=== PATIENT | female | born 1990 | race Caucasian/White ===

== ENCOUNTER 2020-01-13 08:19 | Day surgery (SDC) | payer OTHER ==
[~2020-01-13 08:19] MED LIST: CEFAZOLIN 2 GM/D5W RTU 2 GM/50 ML RTUPB IV PRN; LACTATED RINGERS 1000 ML IV PRN; LIDOCAINE 0.5% INJ-PF (5 MG/ML) 50 ML SDV SUBCUT PRN
[2020-01-13] MEDS ORDERED: CEFAZOLIN 2 GM/D5W RTU 2 GM/50 ML RTUPB IV ONE (08:57)
[2020-01-13] MEDS ORDERED: FENTANYL CITRATE INJ/PF 100 MCG/2 ML AMPUL ONE (09:34)
[2020-01-13] MEDS ORDERED: PROPOFOL INJ 200 MG/20 ML VIAL IV ONE (09:35)
[2020-01-13] MEDS ORDERED: ONDANSETRON HCL INJ/PF 4 MG/2 ML SDV ONE (09:35)
[2020-01-13] MEDS ORDERED: DEXAMETHASONE SOD PHOSPHATE INJ 4 MG/1 ML VIAL ONE (09:35)
[2020-01-13] MEDS ORDERED: MIDAZOLAM 2 MG/2 ML INJ ONE (09:35)
[2020-01-13] MEDS ORDERED: COCAINE HCL 4% TOPICAL SOLN 4 ML ONE (09:57)
[2020-01-13] MEDS ORDERED: OXYMETAZOLINE HCL 0.05% NASAL SPRAY 15 ML BOTTLE ONE (09:57)
[2020-01-13] MEDS ORDERED: FENTANYL CITRATE INJ/PF 100 MCG/2 ML AMPUL IV PRN ×3 (10:46)
[2020-01-13] MEDS ORDERED: MEPERIDINE HCL/PF INJ 25 MG/1 ML DISP.SYRIN IV PRN (10:46)
[2020-01-13] MEDS ORDERED: MORPHINE SULFATE 10 MG/ML INJ IV PRN (10:46)
[2020-01-13] MEDS ORDERED: PROMETHAZINE HCL INJ 25 MG/1 ML VIAL IV PRN (10:46)
[2020-01-13] MEDS ORDERED: ONDANSETRON HCL INJ/PF 4 MG/2 ML SDV IV PRN ×2 (10:46→11:48)
[2020-01-13] MEDS ORDERED: OXYCODONE-ACETAMINOPHEN 5-325 MG TABLET PO PRN ×2 (10:46)
[2020-01-13] MEDS ORDERED: DIPHENHYDRAMINE HCL 50 MG/ML VIAL IV PRN (10:46)
[2020-01-13] MEDS ORDERED: DEXAMETHASONE SOD PHOS INJ 10 MG/1 ML VIAL ONE (11:21)
[2020-01-13] MEDS ORDERED: SUCCINYLCHOLINE CHLORIDE INJ 200 MG/10 ML VIAL ONE (11:25)
[2020-01-13] MEDS ORDERED: ROCURONIUM BROMIDE INJ 50 MG/5 ML VIAL IV ONE (11:25)
[2020-01-13] MEDS: FENTANYL CITRATE INJ/PF 100 MCG/2 ML AMPUL ONE ×3 (11:34→11:46)
--- NOTE | 2020-01-13 11:43 | Operative Report ---
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 The patient's voice is dysphonic soft. Presents today for a MicroDirect laryngoscopy with injection medialization laryngoplasty of the left true vocal cord. Preoperative Diagnosis: Left true vocal cord paralysis Postoperative Diagnosis: Same as above Procedure: 1. Micro Direct Laryngoscopy 2. Injection medialization laryngoplasty, left true vocal cord Surgeon: Conner Parekh MD, FACS, [facility] Anesethia: ZELDA Description of the procedure: After receiving informed consent, the patient was brought to the operating room and placed supine on the operating room table. After successful induction and intubation by anesthesia, the operating room table was turned 90. A head drape was placed. The patient was placed in a sniffing position. A mouthguard was placed to protect the dentition. An operating laryngoscope was placed atraumatically into the laryngeal inlet. The laryngoscope was then placed into suspension. The microscope was brought into the field and the larynx was visualized. The left true vocal cord was atrophied compared to the right. Cottonoids soaked in 4% cocaine were placed into the laryngeal inlet to cover the vocal cords, prior to initiation of the procedure. The cottonoids were removed. The injection material which was Ofelia gel, a temporary bulking agent, was injected at the junction of the ventricle and true vocal cord just anterior to the tip of the vocal cord process. Approximately 1.2 mL of the bulking agent was injected. An infraglottic bulge was noted at the onset of injection. The depth of injection was around 5 mm. A cottonoid soaked in 4% cocaine was placed over the injection site. Hemostasis was obtained. The patient was taken out of suspension and the laryngoscope removed. The patient was then given back to anesthesia who successfully extubated the patient without any complications. Estimated blood loss: Minimal Fluids: 700 mL The patient tolerated the procedure well without any complications. The patient was then transported to the post anesthesia care unit in stable condition with spontaneous respirations.
[2020-01-13] MEDS ORDERED: HYDROCODONE/ACETAMINOPHEN 5-325 MG TABLET PO PRN (11:46)
[2020-01-13 13:37] VITALS: BP 107/73
== END 2020-01-13 13:35 | disposition home or self-care (01) ==
LOC: OROUT 08:19
PROVIDERS: ATTEND Otolaryngology
DX: J38.01 Paralysis of vocal cords and larynx, unilateral (principal); R13.12 Dysphagia, oropharyngeal phase; E89.0 Postprocedural hypothyroidism; Z79.899 Other long term (current) drug therapy
CPT/HCPCS: 87635; 31570; J2250; J3490 ×2; J1100 ×2; J3010; J2405; J2704; J0690; C9803; 320; J0330; L8607

== ENCOUNTER 2020-05-20 10:23 | Day surgery (SDC) | payer OTHER ==
[~2020-05-20 10:23] MED LIST changes: +LIDOCAINE 4% INJ/PF (40 MG/ML) 5 ML AMPUL NEB PRN; +NORMAL SALINE INJ/PF 0.9% 10 ML SDV MC PRN
[2020-05-20] MEDS ORDERED: CEFAZOLIN 2 GM/D5W RTU 2 GM/50 ML RTUPB IV ONE (10:58)
[2020-05-20] MEDS ORDERED: LIDOCAINE 4% INJ/PF (40 MG/ML) 5 ML AMPUL ONE (12:14)
[2020-05-20] MEDS ORDERED: LIDOCAINE 2%/EPINEPHRINE INJ 1.7 ML CARTRIDGE ONE (12:40)
[2020-05-20] MEDS ORDERED: LIDOCAINE 1%/EPINEPHRINE INJ 20 ML VIAL ONE (12:40)
[2020-05-20] MEDS ORDERED: OXYMETAZOLINE HCL 0.05% NASAL SPRAY 15 ML BOTTLE ONE (12:40)
[2020-05-20] MEDS ORDERED: COCAINE HCL 4% TOPICAL SOLN 4 ML ONE (12:40)
[2020-05-20] MEDS ORDERED: MIDAZOLAM 2 MG/2 ML INJ ONE ×2 (12:47→14:01)
[2020-05-20] MEDS ORDERED: DEXAMETHASONE SOD PHOSPHATE INJ 4 MG/1 ML VIAL ONE ×2 (12:47→14:01)
[2020-05-20] MEDS ORDERED: FENTANYL CITRATE INJ/PF 100 MCG/2 ML AMPUL ONE ×3 (12:48→17:15)
[2020-05-20] MEDS ORDERED: PROPOFOL 1,000 MG/100 ML INFUS..BTL IV ONE (12:48)
[2020-05-20] MEDS ORDERED: DEXMEDETOMIDINE INJ 80 MCG/20 ML VIAL IV ONE (12:48)
[2020-05-20] MEDS ORDERED: MEPERIDINE HCL/PF INJ 25 MG/1 ML DISP.SYRIN IV PRN (14:10)
[2020-05-20] MEDS ORDERED: DIPHENHYDRAMINE HCL 50 MG/ML VIAL IV PRN (14:10)
[2020-05-20] MEDS ORDERED: ONDANSETRON HCL INJ/PF 4 MG/2 ML SDV IV PRN ×2 (14:10→17:00)
[2020-05-20] MEDS ORDERED: PROMETHAZINE HCL INJ 25 MG/1 ML VIAL IV PRN (14:10)
[2020-05-20] MEDS ORDERED: FENTANYL CITRATE INJ/PF 100 MCG/2 ML AMPUL IV PRN ×3 (14:10)
[2020-05-20] MEDS ORDERED: ONDANSETRON HCL INJ/PF 4 MG/2 ML SDV ONE (16:50)
[2020-05-20] MEDS ORDERED: HYDROCODONE/ACETAMINOPHEN 5-325 MG TABLET ONE (17:27)
[2020-05-20] MEDS: HYDROCODONE/ACETAMINOPHEN 5-325 MG TABLET PO PRN (17:29)
--- NOTE | 2020-05-20 17:38 | Operative Report ---
[facility] Oper[facility] Report: Date: 20 May 2020 History: 30-year-old female who has a left true vocal cord paralysis secondary to thyroid surgery. Patient underwent an injection medialization laryngoplasty which resulted in improvement of her voice. The absorbable material resorbed and her voice returned to the preinjection status which was breathy and soft. Prior to surgery, we had discussed injection medialization laryngoplasty using hydroxyapatite versus implant medialization laryngoplasty. After extensive disc ussion, the patient decided to pursue the implant medialization laryngoplasty. Informed consent was obtained from the patient Pre-operative diagnosis: Left true vocal cord paralysis Post operative diagnosis: Same as above Procedure: 1. Medialization laryngoplasty, left true vocal cord [CPT: 11598] 2. Flexible fiberoptic nasopharyngolaryngoscopy Surgeon: Conner Parekh MD, FACS, [facility] Anesthesia: MAC Procedure: After receiving informed consent the patient was taken to the operating and placed supine on the operating table. IV sedation was provided to the patient. Anesthetic plan was discussed with anesthesia and was the patient would undergo a deep sedation during the initial portion of the procedure and that sedation would be lightened when we needed the patient to vocalize. After induction with IV sedation shoulder roll was placed and the planned incision was marked. The incision extended from about 2 cm on the right paramedian side towards the anterior border of the sternocleidomastoid muscle on the left side and the incision was marked approximately 5 mm superior to the inferior border of the thyroid cartilage. This area was then infiltrated with 2% lidocaine with 100,000 epinephrine. The deep tissues were also infiltrated. Cottonoids saturated with 4% cocaine were then placed into each nasal cavity. Patient then prepped and draped in a sterile fashion. 15 blade was used to make an incision through the skin and subcutaneous tissues. The incision also extended through the platysma. Subplatysmal flaps were elevated superiorly and inferiorly. Strap muscles were identified midline and . The sternohyoid strap muscle was undermined to expose the sternothyroid muscle. The entirety of the thyroid cartilage was identified starting from the thyroid notch to the cricothyroid membrane. Next the sternal thyroid muscle was transected inferiorly just superior to the inferior border of the thyroid cartilage and using a [place] elevator was dissected from the thyroid cartilage. The Rodriguez thyroplasty system was used for the medialization laryngoplasty. This system contains its own instruments to measure the window for the implant. The thyroid tubercle was identified and then using the female Caliper, measurements were taken anterior and posterior to the thyroid tubercle. The inferior and of the caliper was lifted free from the cartilage and then the Bovie electrocautery contacted the superior end of the caliper leaving a chely on the thyroid cartilage. This was repeated posterior to the thyroid tubercle. These jarquin were then connected with a marking pen and that straight line extended to the anterior midline of the thyroid cartilage. The caliper was then placed at the anterior midline on that previously drawn line to determine the schmidt point. This schmidt point is the anterior superior portion of the implant window. Once the schmidt point was identified the window outline instrument, specific for females, was used to outline the window using the previously marked area as the superior margin of the window. The window outline instrument was placed into the Bovie electrocautery and cautery current was applied leaving for jarquin. A marking pen was then used to connect these jarquin. This was the outline for the implant window. Next using a oscillating saw the implant window was cut into the thyroid cartilage. The inner perichondrium was removed from the window block that was cut out of the thyroid cartilage. Using a duckbill elevator the inner perichondrium was then carefully elevated around the implant window. The window outline instrument was then used as a template to confirm that the window is the correct size. The wound was the correct size. At this point the sedation was lightened and a flexible fiberoptic laryngoscope was inserted through the nose down into the laryngeal inlet to view the vocal cords. Next the Rodriguez thyroplasty implant measuring devices were used to determine the implant size. At this point we had the patient vocalized and the implant measuring device was inserted through the window to determine the optimal voice and vocal cord closure. It was determined that a size #8 implant provided the optimal voice for the patient. Once the implant size was determined, the flexible fiberoptic laryngoscope was withdrawn from the patient and the patient's anesthetic level was deepened. The #8 implant was then inserted into the window. It was determined that the implant had a snug fit and was inserted properly. The wound was then irrigated with copious muscle normal saline clear. No evidence of bleeding was noted. Hemostasis was obtained using bipolar electrocautery. Wound was then closed in layers. The strap muscles were approximated using 4-0 Monocryl as was the platysma and subcutaneous tissues. 4-0 Monocryl was also used to close the dermal layer. Dermabond, Mastisol, Steri-Strips and a dressing applied. Patient was then awoken from the anesthetic. No complications. Estimated blood loss: 15 mL Fluids: 1500 mL The patient was then transported to the Post Anesthesia Care Unit in stable condition with spontaneous respiration. No complication.
[2020-05-20] MEDS: RINGERS SOLUTION,LACTATED 1,000 ML IV PRN (18:34)
[2020-05-20] MEDS: CEFAZOLIN 1 GM/D5W RTU 1 GM/50 ML RTUPB IV SCH (18:37)
[2020-05-20] MEDS: DEXAMETHASONE SOD PHOSPHATE INJ 4 MG/1 ML VIAL IV SCH (22:24)
[2020-05-21] MEDS: CEFAZOLIN 1 GM/D5W RTU 1 GM/50 ML RTUPB IV SCH ×2 (01:50→09:59)
[2020-05-21] MEDS: HYDROCODONE/ACETAMINOPHEN 5-325 MG TABLET PO PRN ×2 (01:50→10:00)
[2020-05-21 03:54] VITALS: BP 121/87
[2020-05-21] MEDS: RINGERS SOLUTION,LACTATED 1,000 ML IV PRN (06:22)
[2020-05-21] MEDS: DEXAMETHASONE SOD PHOSPHATE INJ 4 MG/1 ML VIAL IV SCH (06:22)
--- NOTE | 2020-05-21 10:52 | PDOC DISCHARGE SUMMARY ---
Impression - Admit/DC Date/PCP Admission Date/Primary Care Provider: SERAFIN BLOOM PA-C Discharge Date: 05/21/20 - Discharge Diagnosis (1) Vocal cord paralysis, unilateral complete Is this a current diagnosis for this admission?: Yes - Assessment Summary: Patient underwent a medialization laryngoplasty of the left true vocal cord on 20 May 2020. Please see operative note for all details. Patient was admitted overnight for observation. She did great and was stable overnight without any complications. Patient was examined this morning. Her voice was found to be strong and loud without evidence of breathiness or raspiness. The dressing was removed from the neck incision. The flaps are flat without evidence of hematoma. Steri-Strips in place. Patient will be discharged home. Patient will be given a prescription for [place] and postoperative instructions. Patient is going to follow-up in the ENT clinic on 27 May 2020. - Additional Information Resuscitation Status: Full Code Discharge Diet: As Tolerated Discharge Activity: Other - Postoperative instructions were given to the patient which include modified voice rest. We told the patient that she can speak but on a limited basis only. No yelling, shouting, whispering or talking loudly. She does to speak in her normal voice at all times. We also provided wound care instructions with regards to the neck incision. Told the patient to leave the Steri-Strips in place until they fall off by themselves. Referrals: SERAFIN BLOOM PA-C [Primary Care Provider] - Home Medications: No Home Medications 05/17/20 History of Present Illiness History of Present Illness: AUBREY POLANCO is a 30 year old female Physical Exam Vital Signs: Temp Pulse Resp BP Pulse Ox 98.2 F 81 18 121/87 H 100 05/21/20 08:32 05/21/20 03:53 05/21/20 03:53 05/21/20 03:53 05/21/20 03:53 Intake & Output 05/20/20 05/21/20 05/22/20 06:59 06:59 06:59 Intake Total 2480 50 Output Total 5 Balance 2475 50 Weight 63 kg Results Laboratory Results: Urine HCG, Qual NEGATIVE (NEGATIVE) 05/20/20 10:40 COVID-19 Source See comment 05/17/20 10:10 COVID-19 (KELL) Not Detected (Not Detect) 05/17/20 10:10 Stroke Is this a Stroke Patient?: No Acute Heart Failure Is this a Heart Failure Patient?: No
[2020-05-21] MEDS ORDERED: DEXAMETHASONE SOD PHOSPHATE INJ 4 MG/1 ML VIAL IV ONE (12:00)
== END 2020-05-21 12:03 | disposition home or self-care (01) ==
LOC: OROUT 10:23 → 3S 18:28 → OROUT 05-21 12:03
PROVIDERS: ATTEND Otolaryngology
DX: J38.01 Paralysis of vocal cords and larynx, unilateral (principal); R13.12 Dysphagia, oropharyngeal phase; Z98.890 Other specified postprocedural states; K21.9 Gastro-esophageal reflux disease without esophagitis; Z79.899 Other long term (current) drug therapy; Z03.818 Encounter for observation for suspected exposure to other biological agents ruled out; Z80.8 Family history of malignant neoplasm of other organs or systems; Z85.41 Personal history of malignant neoplasm of cervix uteri
CPT/HCPCS: 87635; 81025; 00320; 31591; J2250; J3490 ×5; J0690 ×3; C9046; J1100 ×2; J3010; J2704; J2405; J7120 ×2; C9803; 320